=== PATIENT | male | born 1945 | race Caucasian/White ===

== ENCOUNTER 2017-06-29 11:41 | Emergency (ER) | payer MEDICARE ==
[2017-06-29 12:27] LABS: BASOPHILS % (AUTO) 0.6 % (0.0-5.0); EOSINOPHILS % (AUTO) 2.5 % (0.0-8.0); LYMPHOCYTES % (AUTO) 28.9 % (21.0-51.0); MEAN CORPUSCULAR HEMOGLOBIN 34.1 pg (27.0-33.0); MEAN CORPUSCULAR HGB CONC 34.7 g/dL (32.0-36.0); MEAN CORPUSCULAR VOLUME 98.1 fL (79-99); MONOCYTES % (AUTO) 8.8 % (3.0-13.0); NEUTROPHILS % (AUTO) 59.2 % (40.0-77.0); PLATELET COUNT (AUTO) 183 K/uL (130-400); RED BLOOD CELL COUNT(AUTO) 4.28 MIL/uL (4.50-6.20); RED CELL DISTRIBUTION WIDTH 13.6 % (11.0-15.5); WHITE BLOOD COUNT (AUTO) 7.3 K/uL (4.8-10.8)
[2017-06-29 12:35] LABS: APPEARANCE,URINE Clear (CLEAR); BILIRUBIN,URINE Negative (NEGATIVE); COLOR,URINE Yellow (YELLOW); GLUCOSE, URINE (UA) Negative (NEGATIVE); KETONES,URINE Negative (NEGATIVE); LEUKOCYTE ESTERASE ,URINE Negative (NEGATIVE); NITRATE,URINE Negative (NEGATIVE); OCCULT BLOOD,URINE Negative (NEGATIVE); PH,URINE 6.5 (5.0-8.0); PROTEIN,URINE Negative (NEGATIVE)
[2017-06-29 12:38] LABS: CREATININE 1.1 mg/dL (0.5-1.5); POTASSIUM 3.9 mmol/L (3.5-5.1)
[2017-06-29 12:43] LABS: ALBUMIN 3.4 g/dL (3.5-5.0); BILIRUBIN,TOTAL 0.3 mg/dL (0.2-1.0); TOTAL PROTEIN, SERUM 7.2 g/dL (6.0-8.3)
== END 2017-06-29 14:31 | disposition home or self-care (01) ==
LOC: EDH 11:41
DX: R10.9 Unspecified abdominal pain (principal); I10 Essential (primary) hypertension; E78.5 Hyperlipidemia, unspecified; E11.9 Type 2 diabetes mellitus without complications; Z87.891 Personal history of nicotine dependence
CPT/HCPCS: 36415; 74176; 80053; 81003; 85025

== ENCOUNTER 2018-04-20 10:21 | Observation (INO) | payer MEDICARE ==
[~2018-04-20] VITALS: Ht 177.8 cm; Wt 96.5 kg
[2018-04-20 10:38] LABS: BASOPHILS % (AUTO) 0.3 % (0.0-5.0); EOSINOPHILS % (AUTO) 0.8 % (0.0-8.0); HEMATOCRIT 43.3 % (42-54); LYMPHOCYTES % (AUTO) 21.2 % (21.0-51.0); MEAN CORPUSCULAR HEMOGLOBIN 34.8 pg (27.0-33.0); MEAN CORPUSCULAR HGB CONC 34.9 g/dL (32.0-36.0); MEAN CORPUSCULAR VOLUME 99.5 fL (79-99); MONOCYTES % (AUTO) 11.7 % (3.0-13.0); PLATELET COUNT (AUTO) 176 K/uL (130-400); RED BLOOD CELL COUNT(AUTO) 4.36 MIL/uL (4.50-6.20); RED CELL DISTRIBUTION WIDTH 13.6 % (11.0-15.5); WHITE BLOOD COUNT (AUTO) 10.6 K/uL (4.8-10.8)
[2018-04-20 10:45] LABS: CREATININE 1.1 mg/dL (0.5-1.5); POTASSIUM 3.5 mmol/L (3.5-5.1)
[2018-04-20 10:50] LABS: ALBUMIN 3.3 g/dL (3.5-5.0); BILIRUBIN,TOTAL 1.2 mg/dL (0.2-1.0); TOTAL PROTEIN, SERUM 7.6 g/dL (6.0-8.3)
[2018-04-20 11:08] LABS: B-TYPE NATRIURETIC PEPTIDE 234 pg/mL (0-100)
[2018-04-20 11:15] LABS: CREATINE KINASE, TOTAL 76 U/L (21-232); MYOGLOBIN 53 ng/mL (10-92); TROPONIN I < 0.04 ng/mL (0.00-0.06)
[2018-04-20] MEDS ORDERED: FUROSEMIDE 10 MG/ML 2ML VIAL IV SCH (12:00)
[2018-04-20] MEDS ORDERED: FUROSEMIDE 10 MG/ML 2ML VIAL ONE (12:22)
[2018-04-20] MEDS ORDERED: ACETAMINOPHEN-CODEINE 300/30MG TAB PO PRN (13:45)
[2018-04-20] MEDS ORDERED: MORPHINE SULFATE 2 MG/ML 1ML SYG IM PRN (15:00)
[2018-04-20] MEDS ORDERED: ONDANSETRON HCL MDV 20ML 2 MG/ML VIAL IVP PRN (15:00)
[2018-04-20] MEDS ORDERED: ONDANSETRON HCL 4 MG/2 ML VIAL IVP PRN (15:48)
[2018-04-20] MEDS ORDERED: ENOXAPARIN SODIUM 40 MG/0.4 ML SYRINGE SQ ONE (18:22)
[2018-04-20 19:48] VITALS: BP 145/82
[2018-04-20] MEDS ORDERED: METOPROLOL TARTRATE 50 MG TAB PO SCH (21:00)
[2018-04-20] MEDS ORDERED: FAMOTIDINE 20MG TAB 20 MG TAB PO SCH (21:00)
[2018-04-20] MEDS: FAMOTIDINE 20MG TAB 20 MG TAB PO SCH (21:23)
[2018-04-20] MEDS ORDERED: BUSP10TA3 PO (22:02)
[2018-04-20] MEDS ORDERED: METO100T14 PO (22:02)
[2018-04-20] MEDS ORDERED: LOSA25TA16 PO (22:02)
[2018-04-20] MEDS ORDERED: ISOS30TA6 PO (22:02)
[2018-04-20] MEDS ORDERED: ALLO300T2 PO (22:02)
[2018-04-20] MEDS ORDERED: ALPR0.5T8 PO (22:02)
[2018-04-20] MEDS ORDERED: FURO40TA5 PO (22:02)
[2018-04-20] MEDS ORDERED: POTA10TA14 PO (22:02)
[2018-04-20] MEDS ORDERED: ASPI-1012 PO (22:02)
[2018-04-20 23:09] VITALS: BP 136/81
[2018-04-20] MEDS ORDERED: ALPRAZOLAM 0.5 MG TABLET PO SCH (23:50)
[2018-04-20] MEDS ORDERED: ACETAMINOPHEN 325 MG TAB ONE (23:56)
[2018-04-20] MEDS: BUSPIRONE HCL 5 MG TABLET PO SCH (23:58)
[2018-04-21 04:31] VITALS: BP 130/77
[2018-04-21 07:00] VITALS: BP 141/73
[2018-04-21 07:02] LABS: CREATININE 1.2 mg/dL (0.5-1.5); POTASSIUM 3.5 mmol/L (3.5-5.1)
[2018-04-21] MEDS ORDERED: METOPROLOL TARTRATE 50 MG TAB PO SCH ×2 (09:00→21:00)
[2018-04-21] MEDS ORDERED: FUROSEMIDE 40 MG TABLET PO SCH (09:00)
[2018-04-21] MEDS ORDERED: ENOXAPARIN SODIUM 30 MG/0.3 ML SQ SCH (09:00)
[2018-04-21] MEDS ORDERED: NON-FORMULARY MEDICATION 1 EACH (Buspirone HCl 10 MG) PO SCH (09:00)
[2018-04-21] MEDS ORDERED: FUROSEMIDE 10 MG/ML 2ML VIAL IV SCH (09:00)
[2018-04-21] MEDS ORDERED: ASPIRIN 325MG EC TAB 325 MG TABLET.DR PO SCH (09:00)
[2018-04-21] MEDS ORDERED: ALLOPURINOL 300 MG TABLET PO SCH (09:00)
[2018-04-21] MEDS ORDERED: POTASSIUM CHLORIDE 10 MEQ/TAB.SA PO SCH (09:00)
[2018-04-21] MEDS ORDERED: LOSARTAN 50 MG TABLET PO SCH (09:00)
[2018-04-21] MEDS ORDERED: ISOSORBIDE MONO 30MG TAB SR PO SCH (09:00)
[2018-04-21] MEDS ORDERED: ENOXAPARIN SODIUM 40 MG/0.4 ML SYRINGE SQ SCH (09:00)
[2018-04-21 09:11] LABS: BASOPHILS % (AUTO) 0.5 % (0.0-5.0); EOSINOPHILS % (AUTO) 1.1 % (0.0-8.0); HEMATOCRIT 44.7 % (42-54); LYMPHOCYTES % (AUTO) 23.8 % (21.0-51.0); MEAN CORPUSCULAR HEMOGLOBIN 34.5 pg (27.0-33.0); MEAN CORPUSCULAR HGB CONC 34.4 g/dL (32.0-36.0); MEAN CORPUSCULAR VOLUME 100.2 fL (79-99); MONOCYTES % (AUTO) 9.2 % (3.0-13.0); NEUTROPHILS % (AUTO) 65.4 % (40.0-77.0); PLATELET COUNT (AUTO) 163 K/uL (130-400); RED BLOOD CELL COUNT(AUTO) 4.46 MIL/uL (4.50-6.20); RED CELL DISTRIBUTION WIDTH 13.5 % (11.0-15.5); WHITE BLOOD COUNT (AUTO) 8.1 K/uL (4.8-10.8)
[2018-04-21] MEDS: BUSPIRONE HCL 5 MG TABLET PO SCH (09:20)
[2018-04-21] MEDS: FAMOTIDINE 20MG TAB 20 MG TAB PO SCH (09:20)
[2018-04-21] MEDS ORDERED: ALPRAZOLAM 0.5 MG PO SCH (21:00)
== END 2018-04-21 13:05 | disposition home or self-care (01) ==
LOC: EDH 10:21 → INTOOBSV 13:31 → EDHIP 13:31 → 2DH 19:13
PROVIDERS: ADMIT Hospitalist; ATTEND Hospitalist
DX: I11.0 Hypertensive heart disease with heart failure (principal); I50.43 Acute on chronic combined systolic (congestive) and diastolic (congestive) heart failure; I25.5 Ischemic cardiomyopathy; E11.9 Type 2 diabetes mellitus without complications; E78.5 Hyperlipidemia, unspecified; I25.10 Atherosclerotic heart disease of native coronary artery without angina pectoris; I48.91 Unspecified atrial fibrillation; I49.3 Ventricular premature depolarization; Z87.891 Personal history of nicotine dependence; Z95.1 Presence of aortocoronary bypass graft; Z95.810 Presence of automatic (implantable) cardiac defibrillator; Z82.49 Family history of ischemic heart disease and other diseases of the circulatory system; Z79.899 Other long term (current) drug therapy
CPT/HCPCS: 36415 ×2; 71045; 80048; 80053; 82550; 83874; 83880; 84484 ×4; 85025 ×2; 93005 ×4; 96372; 96374; 96376; 99284; G0378 ×24; J1650 ×2; J1940 ×3